=== PATIENT | male | born 1970 | race Caucasian/White ===

== ENCOUNTER 2017-12-07 21:56 | Emergency (ER) | payer OTHER | END 2017-12-08 01:26 | disposition home or self-care (01) | LOC: FTE 21:56 | DX: S01.512A Laceration without foreign body of oral cavity, initial encounter (principal); J45.909 Unspecified asthma, uncomplicated; X58.XXXA Exposure to other specified factors, initial encounter; Y92.9 Unspecified place or not applicable | CPT/HCPCS: 99282 ==